=== PATIENT | female | born 1980 | race Caucasian/White ===

== ENCOUNTER 2023-03-23 23:34 | Emergency (ER) | payer OTHER ==
[2023-03-23 23:59] VITALS: BP 120/83; PULSE 70; RESP 18; TEMP 98; BMI 24.3
[2023-03-24 00:23] LABS: BASO % 0.7 % (0-2.0); EOS % 3.3 % (0-4.5); HEMATOCRIT 37.4 % (32.4-45.2); HEMOGLOBIN 13.3 GM/dL (10.7-15.3); MCH 33.5 pg (25.7-33.7); MCHC 35.5 g/dl (32.0-36.0); MEAN CELL VOLUME 94.1 fl (80-96); MEAN PLT VOLUME 8.7 fl (7.5-11.1); MONO % 10.1 % (3.8-10.2); NEUT % 63.9 % (42.8-82.8); PLATELET COUNT 249 10^3/uL (134-434); RBC 3.97 M/mm3 (3.60-5.2); RDW 12.5 % (11.6-15.6); WHITE BLOOD COUNT 10.6 K/mm3 (4.0-10.0)
[2023-03-24 00:48] LABS: POTASSIUM 4.2 mmol/L (3.5-5.1)
[2023-03-24 00:50] LABS: CALCIUM 8.4 mg/dL (8.5-10.1)
[2023-03-24 00:51] LABS: ALBUMIN 3.7 g/dl (3.4-5.0); BLOOD UREA NITROGEN 16.4 mg/dL (7-18)
[2023-03-24 00:54] LABS: CREATININE 0.8 mg/dL (0.55-1.3)
[2023-03-24 00:56] LABS: BILIRUBIN,TOTAL 0.2 mg/dL (0.2-1)
== END 2023-03-24 02:46 | disposition left against medical advice (07) ==
LOC: JER 23:34
DX: F41.9 Anxiety disorder, unspecified (principal); R53.1 Weakness; R20.2 Paresthesia of skin; R11.0 Nausea
CPT/HCPCS: 36415; 72125-TC; 80053; 83735; 84443; 84703; 85025; 99284-25